=== PATIENT | male | born 1960 ===

== ENCOUNTER 2021-08-07 17:19 | Inpatient (IN) | payer MEDICARE ==
[~2021-08-07] VITALS: Ht 188 cm; Wt 96.4 kg
--- NOTE | 2021-08-07 18:34 | NUR ---
PT ARRIVED TO ICU 6 AT 1740. PT ARRIVED WITH COMPLETED IVF. ON THE MONITOR PT WAS SINUS TACH WITH RATES IN 120'S. PT WAS ABLE TO MOVE SELF FROM STRETCHER TO BED. PT REPORTS HAVING DARK BLACK DIARRHEA FOR A FEW DAYS. SHORTLY AFTER ARRIVAL PT WAS ASSISTED UP TO [facility] AND HAD LARGE LIQUID DARK MAROON STOOL. PT DENIED ANY DIZZINESS UPON STANDING. PT REPORTS SOME DYSPNEA, ON ROOM AIR WITH SPO2 >96%. PT RR LOW 20'S. PT ARRIVED WITH [address], REPORTED TO BE DIFFICULT IV START. DR MERRITT REQUESTED RN TO NOTIFY DR MARTINEZ THAT PT IS IN ICU. DR MARTINEZ WAS CALLED AND TALKED WITH RN. PT ORIENTED TO ROOM AND CALL LIGHT IS IN REACH OF PT. PT WAS UNABLE TO PROVIDE MEDICATION LIST, REQUESTED HIS BE CALLED FOR MED LIST.
[2021-08-07 18:50] LABS: BASOPHILS ABSOLUTE AUTO 0.03 K/mm3 (0.00-0.23); BASOPHILS PERCENT AUTO 0 % (0-2); EOSINOPHILS PERCENT AUTO 0 % (0-6); Hematocrit 42.2 % (37.0-53.0); Hemoglobin 14.5 g/dL (13.5-17.5); IMMATURE GRAN ABSOLUTE AUTO 0.09 K/mm3 (0.00-0.10); IMMATURE GRAN PERCENT AUTO 0 % (0-1); LYMPHOCYTES ABSOLUTE AUTO 2.82 K/mm3 (0.84-5.20); LYMPHOCYTES PERCENT AUTO 12 % (21-46); MONOCYTES ABSOLUTE AUTO 2.02 K/mm3 (0.16-1.47); MONOCYTES PERCENT AUTO 9 % (4-13); Mean Corpuscular HGB 29.2 pg (26.0-34.0); Mean Corpuscular HGB Conc 34.4 g/dL (31.5-36.5); Mean Corpuscular Volume 85 fL (80-100); Mean Platelet Volume 10.4 fL (9.1-12.4); NEUTROPHILS ABSOLUTE AUTO 18.18 K/mm3 (1.96-9.15); NEUTROPHILS PERCENT AUTO 79 % (41-73); Platelet Count 322 K/mm3 (150-400); RDW Coefficient Variation 15.9 % (11.7-14.2); RDW Standard Deviation 50.4 fL (35.1-46.3); Red Blood Cell Count 4.97 M/mm3 (4.30-5.90); White Blood Cell Count 23.14 K/mm3 (4.00-11.30)
[2021-08-07 19:06] LABS: Alanine Aminotransfer (ALT/SGP 29 U/L (12-78); Albumin, Blood 3.3 g/dL (3.4-5.0); Alk Phos 101 U/L (50-136); Anion Gap 10 mmol/L (6-16); Aspartate Aminotrans (AST/SGOT 23 U/L (12-37); Bilirubin, Direct 0.1 mg/dL (0.0-0.3); Bilirubin, Indirect 0.5 mg/dL (0.1-0.7); Bilirubin, Total 0.6 mg/dL (0.1-1.0); Blood Urea Nitrogen 47 mg/dL (8-24); Bun/Creatinine Ratio 59.4 (12.0-20.0); CO2, Blood 21 mmol/L (21-32); Calcium, Blood 8.3 mg/dL (8.5-10.1); Chloride, Blood 111 mmol/L (98-108); Creatinine, Blood 0.79 mg/dL (0.60-1.20); Globulin, Blood 3.4 g/dL (2.2-4.0); Glomerular Filtration Rate >60 (60-); Glucose, Blood 132 mg/dL (70-99); Phosphorus, Blood 2.3 mg/dL (2.5-4.9); Potassium, Blood 2.9 mmol/L (3.5-5.5); Sodium, Blood 142 mmol/L (136-145); Total Protein, Blood 6.7 g/dL (6.4-8.2)
[2021-08-07] MEDS ORDERED: ROXICODONE15 MG PO (19:09)
[2021-08-07] MEDS ORDERED: MS CONTIN PO (19:09)
[2021-08-07] MEDS ORDERED: SOMA PO (19:10)
[2021-08-07] MEDS ORDERED: DIAZEPAM5 M2 PO (19:10)
[2021-08-07] MEDS ORDERED: CITALOPRAM HBR40 M6 PO (19:11)
[2021-08-07] MEDS ORDERED: FAMO20 PO (19:12)
[2021-08-07] MEDS ORDERED: OMEPRAZOLE MAGN20 M1 PO (19:12)
[2021-08-07] MEDS ORDERED: ESOMEPRAZOLE MA40 MG PO (19:12)
[2021-08-07] MEDS ORDERED: HYOS.125 SL (19:14)
[2021-08-07] MEDS ORDERED: ROPI1 PO (19:14)
--- NOTE | 2021-08-07 21:55 | NUR ---
ASSUMED CARE RECEIVED REPORT FROM YESSENIA AT 1900. PT IS A/O X4, VERY WEAK, BUT ABLE TO EXPRESS NEEDS WELL. 1 PERSON ASSIST TO BEDSIDE COMMODE. HX OF DARK MAROON, LIQUID STOOLS X2 DAYS AND HAD ONE EARLIER WITH DAY SHIFT. MAIN COMPLAINT AT THIS TIME IS NAUSEA AND INCREASING CHRONIC BACK PAIN HE HAS NOT TAKEN HIS SCHEDULED MORPHINE DOSE TODAY AND IS FEELING THE BEGINNINGS OF WITHDRAWLS. HE IS FEBRILE AT 99.4, DENIES DIZZINESS OR SOB. ON ROOM AIR, SPO2 >92%. EXPIRATORY WHEEZE IN LEFT UPPER LOBE AND DIM IN LEFT BASE, OTHERWISE CLEAR. HR ON MONITOR IS SINUS TACH WITH RATE IN 100-110'S. BP STABLE. PG PLACED TO RHONDA AND LEFT AC IV REMOVED. 2 20G PERIPHERAL IV'S REMAIN IN PLACE TO BILATERAL HANDS. HOME MEDICATIONS WERE VERIFIED BY DAY NURSE WITH PT'S AND UPDATED IN EMAR. CALL TO DR. PATTERSON RE: ORDERS FOR MORPHINE, MORPHINE 5MG Q4H IV GIVEN. ORDERS ALSO GIVEN FOR KPHOS 40MM FOR REPLACEMENT. CRITICAL TROPONIN ALSO CALLED TO DR. PATTERSON THIS EVENING AT 2014. PT DENIES CHEST PAIN, DIZZINESS, OR SOB AT THIS TIME. ORDERS REVIEWED, WILL TREAT PRESCRIBED.
[2021-08-08 00:28] LABS: Hematocrit 39.2 % (37.0-53.0); Hemoglobin 13.7 g/dL (13.5-17.5)
--- NOTE | 2021-08-08 01:46 | NUR ---
PT CONTINUES TO COMPLAIN OF ONGOING NAUSEA AND RETCHING EPISODES, DESPITE ZOFRAN Q4H. CALL TO DR. WRIGHT AND ORDERS GIVEN FOR REGLAN 10MG Q6H PRN. PT IS ALSO CHANGED TO PCU STATUS AND WILL BE MOVING TO ROOM 12 HIS TROPONIN TRENDED DOWN FROM 126 TO 77 AND HGB AND HCT ARE STABLE AT 13.7/39.2. WILL CALL FOR REPORT WHEN AVAILABLE.
--- NOTE | 2021-08-08 02:27 | NUR ---
REPORT GIVEN TO DEYSI DIAZ AT 0158. PT TRANSFERRED TO [facility] 13 @ 6372.
--- NOTE | 2021-08-08 03:53 | NUR ---
CARE ASSUMPTION: RECEIVED REPORT FROM KALYN TRACY RN FOR ICU TRANSFER TO PCU. PATIENT ARRIVED BY ICU BED WITH BELONGINGS BAG AND IV MEDS RUNNING. PATIENT TRANSFERRED TO PCU BED BY SLIDING PATIENT OVER. PATIENT NAUSEOUS AND PAINFUL, EXPRESSES FEAR HE WILL HAVE A "RECURRENCE OF ESOPHAGEAL ATTACK." MEDICATED PER EMAR. BED LOW AND LOCKED WITH CALL LIGHT IN PLACE.
--- NOTE | 2021-08-08 06:23 | NUR ---
SHIFT SUMMARY: PATIENT NAUSEOUS W/O EMESIS, NO TARRY STOOLS THIS SHIFT, MILDLY FEBRILE, ALL OTHER VS WNL ON RA. PATIENT PAINFUL AND REQUESTING MORPHINE OUTSIDE OF SCHEDULED WINDOW. MEDICATING PER EMAR. USES URINAL AT BEDSIDE. MAINTENANCE FLUIDS AND PROTONIX IVS RUNNING. PATIENT COOPERATIVE, STATES HE WANTS TO GO HOME. WILL CONTINUE TO MONITOR AND REPORT TO ONCOMING RN.
[2021-08-08 07:50] LABS: Hematocrit 36.8 % (37.0-53.0); Hemoglobin 12.4 g/dL (13.5-17.5); Mean Corpuscular HGB 29.4 pg (26.0-34.0); Mean Corpuscular HGB Conc 33.7 g/dL (31.5-36.5); Mean Corpuscular Volume 87 fL (80-100); Mean Platelet Volume 10.8 fL (9.1-12.4); Platelet Count 282 K/mm3 (150-400); RDW Coefficient Variation 16.1 % (11.7-14.2); RDW Standard Deviation 51.3 fL (35.1-46.3); Red Blood Cell Count 4.22 M/mm3 (4.30-5.90); White Blood Cell Count 18.58 K/mm3 (4.00-11.30)
[2021-08-08 08:08] LABS: Anion Gap 7 mmol/L (6-16); Blood Urea Nitrogen 35 mg/dL (8-24); CO2, Blood 23 mmol/L (21-32); Calcium, Blood 8.1 mg/dL (8.5-10.1); Chloride, Blood 113 mmol/L (98-108); Creatinine, Blood 0.63 mg/dL (0.60-1.20); Glomerular Filtration Rate >60 (60-); Glucose, Blood 142 mg/dL (70-99); Potassium, Blood 3.2 mmol/L (3.5-5.5); Sodium, Blood 143 mmol/L (136-145)
--- NOTE | 2021-08-08 12:13 | NUR ---
PT STATES "I'M EXTREMELY HARD TO SEDATE" DUE TO CHRONIC OPIOD USE FOR CHRONIC BACK PAIN. DR. HURLEY AT BEDSIDE. PT STATES "THEY HAVE CUT ALL MY ESOPOHAGUS MUSCLES AT [facility]". PER SEDATION RN, DR. HURLEY AND CASE WILL BE DONE WITH ANESTHESIOLOGIST.
--- NOTE | 2021-08-08 12:47 | NUR ---
08/08/21 1247 SUSAN GUADALUPE History, Chart, Medications and Allergies reviewed before start of procedure. 3-LEAD EKG REVIEWED WITH PHYSICIAN PRIOR TO START OF PROCEDURE. MONITOR INTACT WITH CONTINUOUS PULSE OXIMETRY AND INTERMITTENT BP. O2 VIA POM INTACT THROUGHOUT SEDATION/PROCEDURE. GENERAL WITH DR. CARMEN.
[2021-08-08 13:47] LABS: Hematocrit 36.7 % (37.0-53.0); Hemoglobin 12.5 g/dL (13.5-17.5)
[2021-08-08 14:00] LABS: Source, Urine Clean Catch
[2021-08-08 14:07] LABS: Bilirubin, Urine Neg (Neg); Blood, Urine 2+ (Neg); Glucose Qualitative, Urine Neg (Neg); Ketones, Urine 2+ (Neg); Leukocyte Esterase, Urine Neg (Neg); Nitrite, Urine Neg (Neg); Protein, Urine 1+ (Neg); Urobilinogen, Urine NORM (Normal)
[2021-08-08 14:17] LABS: Appearance, Urine Hazy (Clear); Color, Urine Pale Yellow (P-Yellow)
[2021-08-08 14:20] LABS: White Blood Cells, Urine 0-2 /hpf (0-5)
[2021-08-08 14:21] LABS: Amorphous Light (0-Heavy); Hyaline Casts Rare /lpf (0-2); Mucus Light (0-Heavy); Squamous Epithelial Cells Rare /hpf (Few)
[2021-08-08 14:22] LABS: Bacteria Mod /hpf
--- NOTE | 2021-08-08 17:45 | NUR ---
END OF SHIFT: PATIENT HAS BEEN STABLE THROUGHOUT THE DAY NO REAL CHANGES, ESPECIALLY IN REGARDS TO NAUSEA AND VOMITTING TO WHICH HE AHS ONLY ONE EPISODE OF VOMITTING AND IT WAS LESS THAN 5mL'S TO WHICH HAD SOME VERY MINIMAL BLOOD. THIS WAS AFTER DAY SURGERY EGD WHICH THEY FOUND SEVERE ESOPHAGITIS, SUPERFICIAL ULCERS. NOTED. PATIENT LATEST Hgb 12.5, PATIENT ANXIOUS BUT ALERT AND ORIENTED. CHEST XRAY WAS UREMARKABLE. PATIENT AHS NEED PRN PAIN MEDICATIONS SCHEDULED IN ORDER TO BARELY COVER HIS PAIN, PROVIDER AWARE, PATIENT HOME MORPHINE DOSE UNKNOWN. PATIENT UNABLE TO REMEMBER. PATIENT DENIES CHEST PAIN, SOB. IS GENERALLY WEAK ESPECIALLY WITH EXERTION, DENIED TYLENOL FOR FEVER OF 99.7, NONPHARMACOLOGICAL INTERVENTIONS PLACED. PATIENT SWITCHING FROM FEVER TO CHILLS. HAS ATTEMPTED CLEAR LIQUIDS, IS APPROACHING LIQUIDS VERY SLOW AND CAUTIOUS. WILL CONTINUE TO MONITOR UNTIL SHIFT CHANGE.
[2021-08-08 18:42] LABS: Hematocrit 34.8 % (37.0-53.0); Hemoglobin 11.9 g/dL (13.5-17.5)
--- NOTE | 2021-08-08 20:25 | NUR ---
CARE ASSUMPTION: RECEIVED REPORT FROM GIOVANNI KELLOGG RN WHO HAD COMPLETED ENTERING NEW MED ORDERS. PATIENT IN ROOM, AWAKE AND NAUSEOUS. PATIENT HYPERTENSIVE AND FEBRILE, MEDICATED FOR PAIN AND NAUSEA PER EMAR. REPEATED VS 30 MIN LATER AND PATIENT WAS RESTING, PAIN AND NAUSEA SUBSIDED, AND VS RETURNED TO NORMAL LIMITS.
--- NOTE | 2021-08-09 07:09 | NUR ---
SHIFT SUMMARY: NO EMESIS OR STOOLS THIS SHIFT. PATIENT'S NAUSEA CONTROLLED BY REGLAN AND ZOFRAN SO LONG MEDS WERE RIGHT ON SCHEDULE. PATIENT STATES THE MORPHINE MADE HIM MORE NAUSEOUS. MAINTAINED CLEAR LIQUID DIET. GAVE HOME DOSE OF VALIUM FOR ANXIETY. BP ELEVATED WITH NO CLEAR ETIOLOGY, MANUAL BP 140/80. NO CHEST PRESSURE OR SOB. GAVE REPORT TO GIOVANNI KELLOGG RN.
[2021-08-09 09:25] LABS: Hematocrit 33.2 % (37.0-53.0); Hemoglobin 11.1 g/dL (13.5-17.5); Mean Corpuscular HGB 29.5 pg (26.0-34.0); Mean Corpuscular HGB Conc 33.4 g/dL (31.5-36.5); Mean Corpuscular Volume 88 fL (80-100); Mean Platelet Volume 10.3 fL (9.1-12.4); Platelet Count 234 K/mm3 (150-400); RDW Coefficient Variation 15.5 % (11.7-14.2); RDW Standard Deviation 50.2 fL (35.1-46.3); Red Blood Cell Count 3.76 M/mm3 (4.30-5.90); White Blood Cell Count 13.13 K/mm3 (4.00-11.30)
[2021-08-09 09:42] LABS: Albumin, Blood 2.8 g/dL (3.4-5.0); Anion Gap 7 mmol/L (6-16); Blood Urea Nitrogen 15 mg/dL (8-24); Bun/Creatinine Ratio 26.1 (12.0-20.0); CO2, Blood 24 mmol/L (21-32); Calcium, Blood 7.9 mg/dL (8.5-10.1); Chloride, Blood 108 mmol/L (98-108); Creatinine, Blood 0.58 mg/dL (0.60-1.20); Glomerular Filtration Rate >60 (60-); Glucose, Blood 227 mg/dL (70-99); Phosphorus, Blood 1.8 mg/dL (2.5-4.9); Potassium, Blood 2.9 mmol/L (3.5-5.5); Sodium, Blood 139 mmol/L (136-145)
[2021-08-09] MEDS ORDERED: ONDA4ODT MM (12:33)
[2021-08-09] MEDS ORDERED: PANT40 PO (12:34)
[2021-08-09] MEDS ORDERED: SUCR1 PO (12:35)
--- NOTE | 2021-08-09 18:26 | NUR ---
DISCHARGE SUMMARY: PATIENT GIVEN 1800 PAIN MEDICATION, FINISHED POTASSIUM PHOS, AT THE REQUEST OF PROVIDER PRIOR TO DISCHARGE. PATIENT DENIES CHEST PAIN OR PRESSURE, IS STILL ANXIOUS BUT RELIEVED TO BE GOING HOME, HAS NO QUESTIONS COMMENTS OR CONCERNS ABOUT PLAN OF CARE OR DISCHARGE INSTRUCTIONS, PATIENT WAS WHEELED OUT BY PATIENT SR. CONSULTANT, VIA WHEELCHAIR TO THE SOUTH ENTRANCE, PATIENT ON RA, STILL MILDLY NAUSEATED ALL IV'S DC'D. PATIENT TOLERATED WELL. FAMILY INVOLVED WITH DISCHARGE INSTRUCTIONS, NO QUESTIONS AT THIS TIME, MEDICATIONS WERE PICKED UP BY PRIOR TO DISCHARGE. NO CONCERNS FROM THIS SWING DRIVER AT THIS TIME.
== END 2021-08-09 19:30 | disposition home or self-care (01) | DRG 381 ==
LOC: PCU 17:19 → ICUE 17:19 → PCU 08-08 02:16
PROVIDERS: Internal Medicine; Student in an Organized Health Care Education/Training Program; ADMIT Internal Medicine
PROC: 0DB38ZX Excision of Lower Esophagus, Via Natural or Artificial Opening Endoscopic, Diagnostic (ICD-10-PCS; principal; 2021-08-08 13:00)
DX: K22.10 Ulcer of esophagus without bleeding (principal); F11.23 Opioid dependence with withdrawal; E86.0 Dehydration; E86.9 Volume depletion, unspecified; I95.9 Hypotension, unspecified; K44.9 Diaphragmatic hernia without obstruction or gangrene; D72.829 Elevated white blood cell count, unspecified; R00.0 Tachycardia, unspecified; M54.9 Dorsalgia, unspecified; G89.29 Other chronic pain; K21.9 Gastro-esophageal reflux disease without esophagitis; Z98.890 Other specified postprocedural states; Z79.899 Other long term (current) drug therapy
CPT/HCPCS: 36415; 71046; 80048; 80053; 80069; 81001; 82248; 84100; 84484; 85014; 85018; 85025; 85027; 87086; 88305; 88312; A9270; C1751; C9113; J2001; J2270; J2405; J2704; J2765; J3010; J7030; J7060; J7120